=== PATIENT | female | born 1955 | race Caucasian/White ===

== ENCOUNTER → 2022-08-28 06:38 | Outpatient (CLI) | payer BC, SELFPAY ==
[2022-08-28 07:33] LABS: Alanine Aminotransferase 24 U/L (12-78); Albumin Level 4.2 g/dl (3.5-5.0); Alkaline Phosphatase 44 U/L (38-126); Aspartate Amino Transferase 31 U/L (14-36); Bilirubin,Direct 0.1 mg/dl (0.0-0.4); Bilirubin,Indirect 0.3 mg/dL (0.0-0.9); Bilirubin,Total 0.4 mg/dl (0.2-1.3); Bilirubin,Unconjugated 0.3 mg/dL (0.0-1.1); Chol/HDL Ratio 2.1 (1-3.5); Cholesterol 178 mg/dl (140-200); HDL Cholesterol 84 mg/dl (40-60); Total Protein,Serum 6.7 g/dl (6.3-8.2); Triglycerides 44 mg/dl (30-150); VLDL Cholesterol 9 mg/dL (0-40)
[2022-08-28 07:44] LABS: Direct LDL Cholesterol 82.96 mg/dL (100-129)
== END ==
PROVIDERS: PCP General Practice; Visit Provider Internal Medicine
DX: R00.2 Palpitations (principal); R00.0 Tachycardia, unspecified; Z82.49 Family history of ischemic heart disease and other diseases of the circulatory system; Z86.39 Personal history of other endocrine, nutritional and metabolic disease
CPT/HCPCS: 78452; 80061; 80076; 93017; 93306; A9502